=== PATIENT | male | born 1955 | race Caucasian/White ===

== ENCOUNTER 2023-01-12 06:11 | Day surgery (SDC) | payer MEDICARE ==
[~2023-01-12 06:11] MED LIST: Lactated Ringers 1,000 ML IV SCH
[2023-01-12] MEDS ORDERED: DIPRIVAN 200 MG/20 ML IV ONE (07:23)
[2023-01-12] MEDS ORDERED: Versed 2 MG/2 ML Injection ONE (07:23)
[2023-01-12] MEDS ORDERED: Xylocaine-Mpf 2% 5 Ml Vial ONE (07:23)
[2023-01-12] MEDS ORDERED: Ketamine HCl 50 MG/ML ONE (07:24)
[2023-01-12 08:29] VITALS: O2SAT 96
[2023-01-12 08:37] VITALS: BP 111/75; PULSE 77
--- NOTE | 2023-01-12 13:13 | OP ---
SURGERY DATE/TIME: 01/12/2023 0733 PREOPERATIVE DIAGNOSES: 1) Persistent gastroesophageal reflux disease. 2) Screening colon. POSTOPERATIVE DIAGNOSES: 1) Mild gastritis. 2) Colon polyps x3. PROCEDURES: 1) EGD. 2) Colonoscopy. SURGEON: Han Morris M.D. ANESTHESIA: MAC by Lane Renee CRNA. ESTIMATED BLOOD LOSS: Minimal. SPECIMENS: 1) Two hot forceps polypectomies from the distal transverse colon. 2) One hot snare polypectomy from the distal sigmoid colon. 3) Cold forceps biopsies of the gastric antrum. DESCRIPTION OF PROCEDURE: After informed written consent was obtained, the patient was taken to the endoscopy suite. He was placed in left lateral decubitus position and a bite block inserted. Anesthesia was titrated to desired level of consciousness and the endoscope was inserted in the posterior oropharynx. Under direct visualization the esophagus was traversed. The stomach had a normal rugated gastric mucosa. There were mild gastritis-type changes in the gastric antrum. There was no evidence of bleeding or focal ulceration. The pylorus was traversed. The first and second portions of the duodenum were unremarkable. Two cold forceps biopsies were taken from the gastric antrum and sent for Helicobacter pylori testing. There was minimal blood loss. The remainder of the exam was within normal limits upon withdrawal. The scope was removed and the scopes were switched. Digital rectal exam showed normal sphincter tone and no internal lesions. The scope was inserted in the rectum and sequentially the entire colonic mucosa was traversed. The level of the cecum was reached and verified with direct visualization of the ileocecal valve. Upon withdrawal in the distal transverse colon there were two small sessile polyps in close proximity. They were both grasped with hot forceps and removed in their entirety and sent in same specimen container due to their close proximity for pathology testing. Upon further withdrawal in the distal sigmoid just prior to the third valve of [place], there was a large broad based polyp which was removed with a snare with excellent removal of the entire lesion with good hemostasis and no blood loss after cauterization. The polyp was too large to come through the scope channel. It was suctioned against the end of the scope and the scope was pulled and it was retrieved from the end of the scope. The scope was then reintroduced to finish the exam and all of the colon biopsy sites were re-inspected and noted to be hemostatic upon removal. The scope was withdrawn and the remainder of the colon was unremarkable. Prior to withdrawal retroflexion showed no internal lesions. The scope was removed and the patient was transferred to the recovery room in good condition.
== END 2023-01-12 08:55 | disposition home or self-care (01) ==
LOC: SDC 06:11
PROVIDERS: ATTEND Family Medicine
DX: Z12.11 Encounter for screening for malignant neoplasm of colon (principal); K21.9 Gastro-esophageal reflux disease without esophagitis; K29.70 Gastritis, unspecified, without bleeding; D12.5 Benign neoplasm of sigmoid colon; D12.3 Benign neoplasm of transverse colon
CPT/HCPCS: J2250; J2704

== ENCOUNTER 2024-09-06 15:20 | Emergency (ER) | payer MEDICARE ==
[2024-09-06 15:35] VITALS: RESP 16; TEMP 97
--- NOTE | 2024-09-06 15:57 | ERPHSYRPT ---
- History of Present Illness Time Seen by Provider: 09/06/24 15:47 Source: patient Exam Limitations: no limitations Patient Subjective Stated Complaint: PT HERE TO HAVE SURGICAL SITE LOOKED OUT, HE IS WORRIED THAT A SUTURE IS STUCK TO THE DRESSING, Triage Nursing Assessment: PT ALERT, WALKED IN, RESP EASY, SKIN W/D/P. HAS CONSTANTIN DRAIN TO RIGHT SIDE OF ABD WITH SEROUS DRAINAGE, HAS SUTURE INTACT, ABLE TO GET DRESSING REMOVED Physician History: 68 years old male with a history of hypertension, hyperlipidemia who was planned to have laparoscopic cholecystectomy 3 days ago but because of inflammation could not get it done and surgery put the CONSTANTIN drain. Patient earlier was changing the dressing and noticed that it was stuck with suture and he thought it is probably sutured and is here for evaluation and wound check. Patient dressings removed and it was not staged. Has appropriate drainage. No erythema. No drainage around the tubing. No worsening of abdominal pain nausea vomiting or fever reported. Dressing is reapplied. Recommended follow-up appointment with general surgery as scheduled. Discussed signs symptoms of worsening needing return to ER which he seems understanding. Stable for discharge. Allergies/Adverse Reactions: No Known Drug Allergies Allergy (Verified 09/06/24 15:34) Home Medications: Atorvastatin Calcium [Lipitor] 80 mg PO DAILY 11/11/22 [History] Losartan Potassium [Cozaar] 25 mg PO DAILY 11/11/22 [History] Nitroglycerin 0.4 mg Tablet [Nitrostat 0.4 MG Tablet] 1 tab PO UD 11/11/22 [History] carvediloL [Carvedilol] 25 mg PO DAILY 11/11/22 [History] Hx Influenza Vaccination/Date Given: No Hx Pneumococcal Vaccination/Date Given: No Immunizations Up to Date: Yes Travel Risk - International Travel Have you traveled outside of the country in past 3 weeks: No - Emerging Infectious Disease Are you exhibiting symptoms associated with any current EIDs: No - Review of Systems Constitutional: No Symptoms Ears, Nose, & Throat: No Symptoms Respiratory: No Symptoms Cardiac: No Symptoms Abdominal/Gastrointestinal: Abdominal Pain Genitourinary Symptoms: No Symptoms Neurological: No Symptoms - Past Medical History Pertinent Past Medical History: Yes Neurological History: No Pertinent History ENT History: Other Cardiac History: Coronary Artery Disease, Hypertension, Myocardial Infarction ([place]) Respiratory History: No Pertinent History Endocrine Medical History: No Pertinent History Musculoskeletal History: No Pertinent History GI Medical History: Gallbladder Disease History: No Pertinent History Psycho-Social History: No Pertinent History Male Reproductive Disorders: No Pertinent History Other Medical History: mi 2011, hearing diffculties, states kidney problems heat related. - Past Surgical History Past Surgical History: Yes Neuro Surgical History: No Pertinent History Cardiac: Cardiac Catheterization, Cardiac Stent Respiratory: No Pertinent History Gastrointestinal: Exploratory Laparoscopy Genitourinary: No Pertinent History Musculoskeletal: No Pertinent History Male Surgical History: No Pertinent History - Social History Smoking Status: Never smoker Exposure to second hand smoke: Yes Drug Use: none - Social Determinants of Health Will the patient participate in the screening: Declined to provide - Nursing Vital Signs Nursing Vital Signs: Initial Vital Signs Temperature 97.0 F 09/06/24 15:34 Pulse Rate 76 09/06/24 15:34 Respiratory Rate 16 09/06/24 15:34 Blood Pressure 107/67 09/06/24 15:34 O2 Sat by Pulse Oximetry 99 09/06/24 15:34 Pain Scale Pain Intensity 2 - Physical Exam General Appearance: no apparent distress Neck Exam: normal inspection, full range of motion Respiratory Exam: normal breath sounds, lungs clear Cardiovascular Exam: regular rate/rhythm, normal heart sounds Gastrointestinal/Abdomen Exam: soft, normal bowel sounds, tenderness (Mild tenderness right upper quadrant with drain well in place and anchored. No erythema around. No drainage around.) Extremity Exam: normal inspection, normal range of motion Neurologic Exam: alert, oriented x 3, cooperative Skin Exam: normal color SpO2 Interpretation: normal SpO2: 99 O2 Delivery: Room Air - Progress Progress Note: 09/06/24 15:56 68 years old male with a history of hypertension, hyperlipidemia who was planned to have laparoscopic cholecystectomy 3 days ago but because of inflammation could not get it done and surgery put the CONSTANTIN drain. Patient earlier was changing the dressing and noticed that it was stuck with suture and he thought it is probably sutured and is here for evaluation and wound check. Patient dressings removed and it was not staged. Has appropriate drainage. No erythema. No drainage around the tubing. No worsening of abdominal pain nausea vomiting or fever reported. Dressing is reapplied. Recommended follow-up appointment with general surgery as scheduled. Discussed signs symptoms of worsening needing return to ER which he seems understanding. Stable for discharge. Counseled pt/family regarding: diagnosis, need for follow-up Medical Desision Making - Diagnostic Testing Diagnostic test were ordered, analyzed, and reviewed by me: No - Risk of complications Low Risk: Low risk of morbidity from additional dx testing or treatment - Departure Departure Disposition: Home Clinical Impression: Encounter for postoperative wound check Condition: Stable Critical Care Time: No Referrals: YVONNE ROWLAND MD [Primary Care Provider] - Follow up with PCP 1 day Instructions: How to care for a closed suction drain Additional Instructions: Follow-up with your general surgeon as scheduled. Return to ER for blockage of drain, worsening abdominal pain, fever chills etc.
[2024-09-06 16:06] VITALS: BP 107/64; PULSE 80; O2SAT 97
== END 2024-09-06 16:36 | disposition home or self-care (01) ==
LOC: ED 15:20
DX: Z48.01 Encounter for change or removal of surgical wound dressing (principal)
CPT/HCPCS: 99281